=== PATIENT | female | born 1970 | race Caucasian/White ===

== ENCOUNTER 2016-04-22 11:39 | Emergency (ER) | payer OTHER ==
[~2016-04-22] VITALS: Ht 152.4 cm; Wt 68.2 kg
[~2016-04-22 11:39] MED LIST: AUGM875T PO
[2016-04-22 11:51] VITALS: BP 107/48; PULSE 77; RESP 16; TEMP 98.5; O2SAT 96
[2016-04-22] MEDS ORDERED: CLOB-14 TOPICAL (12:11)
[2016-04-22] MEDS ORDERED: MEDR4PAK PO (12:11)
--- NOTE | 2016-04-22 12:11 | PD ---
HPI . left leg rash Chief Complaint: Skin Problem Time Seen by Provider: 12:11 Travel History International Travel<30 days: No Contact w/Intl Traveler<30days: No Traveled to known affect area: No History of Present Illness HPI 46-year-old female with no significant past medical history here with complaints of a left leg rash that started about a week ago. [facility] to [facility] and was told that this was just a localized contact dermatitis and was given Medrol Dosepak and clobetasol. She tells me that the rash has not improved and it is still there and appears somewhat worse to her. 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 She denies use of any new hygiene products. She has been using the medications religiously and has not had any improvement. She is here to get another opinion and would like a change of her medications. She tells me that the rash is somewhat purpuric and tender, but not painful. She feels that she would benefit from some antibiotics. At the time of examination she denies any fever, chills, chest pain, shortness of breath, or abdominal pain. PFSH Past Medical History Diminished Hearing: No Immunizations Current: Yes ?: Not LMP: 3 weeks ago Past Surgical History Oral Surgery: Yes Other Surgery: Yes (breast aug) Social History Alcohol Use: No Tobacco Use: No Substance Use: No Allergies-Medications (Allergen,Severity, Reaction): Coded Allergies: Erythromycin (Verified Allergy, Intermediate, 04/22/16) Cortisone (Verified Adverse Reaction, Unknown, atrophy from injection, 04/22) Reported Meds & Prescriptions Reported Meds & Active Scripts Active Bactroban Topical (Mupirocin) 2% Oint 1 Appl TOPICAL BID Bactrim DS (Sulfamethoxazole-Trimethoprim) 800-160 Mg Tab 1 Tab PO BID Reported Clobetasol Topical (Clobetasol Propionate) 0.05% Lotn 1 Applic TOPICAL BID Medrol Dosepak (Methylprednisolone) 4 Mg Dspk 4 Mg PO DIRECTED Per Pharmacist direction Review of Systems General / Constitutional: No: Fever Eyes: No: Visual changes HENT: No: Headaches Cardiovascular: No: Chest Pain or Discomfort Respiratory: No: Shortness of Breath Gastrointestinal: No: Abdominal Pain Genitourinary: No: Dysuria Musculoskeletal: No: Pain Skin: Positive Rash (left posterior thigh) Neurologic: No: Weakness Psychiatric: No: Depression Endocrine: No: Polydipsia Hematologic/Lymphatic: No: Easy Bruising Physical Exam Narrative GENERAL: AAO x 3, no acute distress, Well-nourished, well-developed patient. SKIN: Warm and dry. No visible bruising. There are two small irregularly shaped erythematous wheal like areas (quarter sized) on the posterior thigh. There does not seem to be any central clearing or clear cut demarcation. It is flat and warm to touch. It appears slightly cellulitic, but more allergic in nature. It is not scaling, dry, or blister like. HEAD: Normocephalic and atraumatic. EYES: No scleral icterus. No injection or drainage. ENT: No nasal drainage noted. Mucous membranes pink. Airway patent. NECK: Supple, trachea midline. No JVD. CARDIOVASCULAR: Regular rate and rhythm without murmurs, gallops, or rubs. RESPIRATORY: Breath sounds equal bilaterally. No accessory muscle use. No rhonchi or rales. GASTROINTESTINAL: Abdomen soft, non-tender, nondistended. EXTREMITIES: No cyanosis or edema. BACK: Nontender without obvious deformity. No CVA tenderness. PSYCH: AAO x 3, normal affect. Data Data Last Documented VS Vital Signs Date Time Temp Pulse Resp B/P Pulse Ox O2 Delivery O2 Flow Rate FiO2 04/22/16 11:51 98.5 77 16 107/48 96 MDM Medical Decision Making Medical Screen Exam Complete: Yes Emergency Medical Condition: Yes Differential Diagnosis insect bite, cellulitis, less likely tinea Narrative Course 46-year-old female with no significant past medical history here with complaints of a left leg rash that started about a week ago. Patient went to [facility] and was told that this was just a localized contact dermatitis and was given Medrol Dosepak and clobetasol. She tells me that the rash has not improved and it is still there and appears somewhat worse to her. 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 She denies use of any new hygiene products. She has been using the medications religiously and has not had any improvement. She is here to get another opinion and would like a change of her medications. She tells me that the rash is somewhat purpuric and tender, but not painful. She feels that she would benefit from some antibiotics. At the time of examination she denies any fever, chills, chest pain, shortness of breath, or abdominal pain. Patient seen and examined. There are 2 wheal like quarter size lesions on the posterior thigh. It is very erythematous and slightly warm to touch. I discussed with her that I did not feel it was exactly a cellulitis and may be more allergic in nature. However there was no risk of trying a course of antibiotics. Patient was in agreement and happy with treatment. I have provided her with Bactrim to cover for MRSA and Bactroban topical ointment. 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 She may require a shave biopsy for further analysis. Patient verbalized understanding of instructions, questions were answered, and thanked me for their care. I advised them if their condition worsens, please return to the nearest emergency room for further care. Diagnosis Primary Impression: Cellulitis Qualified Code: L03.116 - Cellulitis of left lower extremity Additional Impression: Insect bite Qualified Code: W57.XXXA - Insect bite, initial encounter Patient Instructions: Cellulitis (ED), General Instructions, Insect Bite or Sting (ED) Additional Instructions: Please return to emergency department if your symptoms return or worsen. Follow up with your primary care provider. Take medications as prescribed. As we discussed follow-up with dermatology as you may require skin biopsy further evaluation of this area. I will go ahead and treat as a cellulitis. I provided you with antibiotics both orally and topically. Med/Other Pt SpecificInfo: Prescription(s) given Scripts Mupirocin Topical (Bactroban Topical)2% Oint1 Appl TOPICAL BID #1 TUBE Ref 0 Prov:Ondina Schwartz MD 04/22/16 Sulfamethoxazole-Trimethoprim (Bactrim DS)800-160 Mg Tab1 Tab PO BID #20 TAB Prov:Ondina Schwartz MD 04/22/16 Disposition: 01 DISCHARGE HOME Condition: Stable OlgaSarah PA Apr 22, 2016 12:11
[2016-04-22] MEDS ORDERED: BACT2OIN TOPICAL (12:28)
[2016-04-22] MEDS ORDERED: BACT800T5 PO (12:28)
== END 2016-04-22 12:41 | disposition home or self-care (01) ==
LOC: PHEFT 11:39
DX: L03.116 Cellulitis of left lower limb (principal); S80.862A Insect bite (nonvenomous), left lower leg, initial encounter; W57.XXXA Bitten or stung by nonvenomous insect and other nonvenomous arthropods, initial encounter
CPT/HCPCS: 99283